=== PATIENT | male | born 1960 | race Caucasian/White ===

== ENCOUNTER 2025-01-31 14:27 | Inpatient (IN) | payer OTHER ==
[~2025-01-31] VITALS: Ht 170.2 cm; Wt 94.4 kg
[2025-01-31 20:00] VITALS: BP 126/82; TEMP 98.1; O2SAT 97
[2025-01-31] MEDS ORDERED: ONDANSETRON HCL/PF 4 MG/2 ML VIAL IVP PRN (21:00)
[2025-01-31] MEDS ORDERED: ENOXAPARIN SODIUM 80 MG/0.8 ML DISP.SYRIN SQ SCH (21:00)
[2025-01-31] MEDS ORDERED: MAGNESIUM HYDROXIDE 30 ML UDC PO PRN (21:00)
[2025-01-31] MEDS ORDERED: MAG HYDROX/AL HYDROX/SIMETH 30 ML UDC PO PRN (21:00)
[2025-01-31] MEDS ORDERED: HYDROCODONE/APAP 5/325MG TABLET PO PRN (21:00)
[2025-01-31] MEDS ORDERED: TEMAZEPAM 15 MG CAPSULE PO PRN (21:00)
[2025-01-31] MEDS ORDERED: Z GUARD REMEDY 4 OZ OINT TP PRN (21:00)
[2025-01-31] MEDS ORDERED: ACETAMINOPHEN 325 MG TABLET PO PRN (21:00)
[2025-02-01] VITALS: BP 121/74; TEMP 98.2; O2SAT 97
[2025-02-01 04:00] VITALS: BP 112/79; TEMP 98.5; O2SAT 94
[2025-02-01 07:03] LABS: PLATELET COUNT (AUTO) 301 K/uL (150-450); RED BLOOD CELL COUNT(AUTO) 4.67 MIL/uL (4.5-6.0); RED CELL DISTRIBUTION WIDTH 13.1 % (11.5-15.0); WHITE BLOOD COUNT (AUTO) 8.9 K/uL (4.3-11.0)
[2025-02-01 07:23] LABS: CALCIUM, SERUM 8.8 mg/dL (8.5-10.1); CREATININE 0.8 mg/dL (0.6-1.3); PHOSPHORUS 4.5 mg/dL (2.5-4.9); SODIUM SERUM 140.0 mmol/L (136-145); UREA NITROGEN, BLOOD 18.0 mg/dL (7-18)
[2025-02-01] MEDS: PANTOPRAZOLE 40 MG TABLET.DR PO SCH (07:30)
[2025-02-01 07:35] LABS: LDL 150.0 mg/dL (0-99)
[2025-02-01 08:00] VITALS: BP 113/80; TEMP 98.7; O2SAT 93
[2025-02-01] MEDS: ENOXAPARIN SODIUM 100 MG/ML DISP.SYRIN SQ SCH (10:25)
[2025-02-01 12:00] VITALS: BP 110/80; TEMP 98.4; O2SAT 93
[2025-02-01 16:00] VITALS: BP 119/72; TEMP 99; O2SAT 93
[2025-02-01 20:00] VITALS: BP 117/80; TEMP 98.2; O2SAT 94
[2025-02-02] VITALS: BP 121/74; TEMP 98.1; O2SAT 95
[2025-02-02 04:00] VITALS: BP 116/82; TEMP 97.9; O2SAT 93
[2025-02-02 08:00] VITALS: BP 103/75; TEMP 97.9; O2SAT 94
[2025-02-02 08:10] LABS: PLATELET COUNT (AUTO) 288 K/uL (150-450); RED BLOOD CELL COUNT(AUTO) 4.49 MIL/uL (4.5-6.0); RED CELL DISTRIBUTION WIDTH 13.0 % (11.5-15.0); WHITE BLOOD COUNT (AUTO) 9.7 K/uL (4.3-11.0)
[2025-02-02 08:34] LABS: CALCIUM, SERUM 8.6 mg/dL (8.5-10.1); CREATININE 0.8 mg/dL (0.6-1.3); SODIUM SERUM 139.0 mmol/L (136-145); UREA NITROGEN, BLOOD 21.0 mg/dL (7-18)
[2025-02-02] MEDS ORDERED: APIX5TAB PO (09:19)
[2025-02-02] MEDS ORDERED: IOHEXOL-300 100 ML VIAL IV ONE (10:01)
[2025-02-02] MEDS ORDERED: IV NS 0.9% 500 ML IV ONE (10:01)
[2025-02-02] MEDS ORDERED: CT SWABBABLE VALVE TRANS SET 1 EA INFUS.SET MC ONE (10:01)
[2025-02-02 12:00] VITALS: BP 115/71; TEMP 98.1; O2SAT 94
[2025-02-02 13:09] LABS: FIBRINOGEN ACTIVITY 681.0 Mg/dL (213-485); INR 1.08 (0.91-1.10)
[2025-02-02] MEDS ORDERED: ALBU8.5H8 INH (14:38)
[2025-02-02 15:28] LABS: IRON, SERUM 23 ug/dl (50-175)
[2025-02-03 06:07] LABS: FOLIC ACID 12.9 ng/mL (>3.0)
[2025-02-03 07:08] LABS: IMMUNOGLOBULIN A, SERUM 198 mg/dL (61-437); IMMUNOGLOBULIN M, SERUM 51 mg/dL (20-172)
[2025-02-03 08:10] LABS: CARCINOEMBRYONIC ANTIGEN (CEA) 0.9 ng/mL (0.0-4.7); HOMOCYSTEINE, PLASMA 7.8 umol/L (0.0-17.2)
[2025-02-03 10:07] LABS: FREE KAPPA LT CHAINS SERUM 14.7 mg/L (3.3-19.4); FREE LAMBDA LT CHAIN SERUM 13.4 mg/L (5.7-26.3); KAPPA/LAMBDA RATIO SERUM 1.10 (0.26-1.65)
[2025-02-05 07:10] LABS: *SPE A/G RATIO 1.0 (0.7-1.7); *SPE ALBUMIN 3.0 g/dL (2.9-4.4); *SPE ALPHA-1-GLOBULIN 0.4 g/dL (0.0-0.4); *SPE ALPHA-2-GLOBULIN 1.1 g/dL (0.4-1.0); *SPE BETA GLOBULIN 1.1 g/dL (0.7-1.3); *SPE GLOBULIN, TOTAL 3.1 g/dL (2.2-3.9); *SPE M-SPIKE Not Observed g/dL (Not Observed); *SPE PROTEIN TOTAL 6.1 g/dL (6.0-8.5); *SPEGAMMA GLOBULIN 0.6 g/dL (0.4-1.8)
[2025-02-05 08:07] LABS: *CARD ANTI-CARDIOLIPIN AB IgG <9 GPL U/mL (0-14); *CARD ANTI-CARDIOLIPIN AB IgM 56 MPL U/mL (0-12)
[2025-02-05 14:07] LABS: *CARD ANTI-CARDIOLIPIN AB IgG <9 GPL U/mL (0-14); *CARD ANTI-CARDIOLIPIN AB IgM 53 MPL U/mL (0-12); Beta-2 Glycoprotein I Ab, IgG < 9 (0-20); Beta-2 Glycoprotein I Ab, IgM 12 (0-32)
== END 2025-02-02 14:50 | disposition home or self-care (01) | DRG 134 ==
LOC: TELE1 19:16
PROVIDERS: ADMIT Nurse Practitioner Acute Care; ATTEND Nurse Practitioner Acute Care
DX: I26.99 Other pulmonary embolism without acute cor pulmonale (principal); I69.351 Hemiplegia and hemiparesis following cerebral infarction affecting right dominant side; J90 Pleural effusion, not elsewhere classified; E66.9 Obesity, unspecified; D64.9 Anemia, unspecified; R91.8 Other nonspecific abnormal finding of lung field; Z68.32 Body mass index [BMI] 32.0-32.9, adult; Z85.841 Personal history of malignant neoplasm of brain; Z92.21 Personal history of antineoplastic chemotherapy; Z92.3 Personal history of irradiation; Z98.890 Other specified postprocedural states; Z79.899 Other long term (current) drug therapy; K40.20 Bilateral inguinal hernia, without obstruction or gangrene, not specified as recurrent; K57.30 Diverticulosis of large intestine without perforation or abscess without bleeding
CPT/HCPCS: 36415; 71270-TC; 80048-TC; 80061-TC; 81240; 81241; 82378; 82607-TC; 82728-TC; 82784; 83090; 83540-TC; 83615-TC; 83735-TC; 84100-TC; 84155; 84165; 84439-TC; 84443-TC; 85025-TC; 85300; 85301; 85303; 85396; 85613; 85670; 85705; 85732; 86147; 86334; 87081-TC; 93307-TC; 97110-TC; 97116-TC; G0378; J1650; J7040; Q9967